=== PATIENT | female | born 1980 | race African-American/Black ===

== ENCOUNTER → 2022-10-02 | Day surgery (SDC) | payer BC ==
--- NOTE | 2022-09-11 12:55 | RAD REPORT ---
EXAM DESCRIPTION: US - Breast Core BX w/US Guidance - 09/11/2022 11:30 am CLINICAL HISTORY: Right breast mass COMPARISON: Ultrasound 08/18/2022 TECHNIQUE: The risks, benefits alternatives to the procedure were explained to the patient and infor med consent obtained. Skin and subcutaneous tissues anesthetized with lidocaine. Under sonographic guidance, 3 x 14 gauge vacuum assisted core biopsies of the mass within the right b reast obtained. The lesion was at approximately 2 o'clock. 2 centimeter specimens taken. Tissue given to pathology. Subsequently a localizing clip was placed into the mass. Patient experienced no immediate complication IMPRESSION: Vacuum assisted core biopsies of the right breast mass
== END ==
LOC: DS 14:59
PROVIDERS: ATTEND Nurse Practitioner Women's Health
DX: R92.8 Other abnormal and inconclusive findings on diagnostic imaging of breast (principal)
CPT/HCPCS: 19083; 88305